=== PATIENT | female | born 1955 | race Hispanic/Latino ===

== ENCOUNTER → 2023-03-01 | Emergency (ER) | payer MEDICARE, OTHER ==
[~2023-03-01] VITALS: Ht 157.5 cm; Wt 107.0 kg
[~2023-03-01] MED LIST: IBUP-2070 PO; METH-662 PO
[2023-03-01 13:20] VITALS: BP 147/105; PULSE 55; RESP 18
== END ==
LOC: EDH 12:42
DX: M54.40 Lumbago with sciatica, unspecified side (principal); I10 Essential (primary) hypertension; E78.00 Pure hypercholesterolemia, unspecified; Z79.899 Other long term (current) drug therapy; Z98.890 Other specified postprocedural states; Z85.3 Personal history of malignant neoplasm of breast; Z96.653 Presence of artificial knee joint, bilateral; Z88.0 Allergy status to penicillin; Z88.8 Allergy status to other drugs, medicaments and biological substances

== ENCOUNTER → 2023-03-14 | Outpatient (CLI) | payer OTHER ==
[~2023-03-14] MED LIST changes: +FAMO-136 PO; +METH4TAB3 PO
== END | disposition home or self-care (01) ==
LOC: RAH 10:56
PROVIDERS: ATTEND Internal Medicine
DX: M54.16 Radiculopathy, lumbar region (principal); G89.29 Other chronic pain; G82.20 Paraplegia, unspecified; W19.XXXA Unspecified fall, initial encounter; Y93.89 Activity, other specified; Y92.89 Other specified places as the place of occurrence of the external cause; Y99.8 Other external cause status
CPT/HCPCS: 72220; 73522

== ENCOUNTER 2023-03-27 11:10 | Emergency (ER) | payer OTHER ==
[~2023-03-27] VITALS: Ht 162.6 cm; Wt 104.3 kg
[~2023-03-27 11:10] MED LIST changes: -FAMO-136 PO; -METH4TAB3 PO
[2023-03-27] MEDS ORDERED: SOLU-MEDROL 125MG VIAL IM ONE (13:30)
[2023-03-27 14:48] VITALS: BP 124/93; PULSE 84; RESP 17; O2SAT 94
[2023-03-27 14:49] LABS: BASOPHILS # (AUTO) 0.04 K/uL (0.00-0.20); BASOPHILS % (AUTO) 0.3 % (0.0-5.0); EOSINOPHILS # (AUTO) 0.16 K/uL (0.00-0.70); EOSINOPHILS % (AUTO) 1.4 % (0.0-8.0); HEMATOCRIT 42.1 % (36-48); IMMATURE GRANULOCYTE ABSOLUTE 0.09 K/uL (0-1); LYMPHOCYTES # (AUTO) 2.1 K/uL (1.0-4.8); LYMPHOCYTES % (AUTO) 18.2 % (21.0-51.0); MEAN CORPUSCULAR HEMOGLOBIN 30.2 pg (27.0-33.0); MEAN CORPUSCULAR HGB CONC 32.3 g/dL (32.0-36.0); MEAN CORPUSCULAR VOLUME 93.3 fL (79-99); MONOCYTES # (AUTO) 0.7 K/uL (0.1-1.0); MONOCYTES % (AUTO) 5.9 % (3.0-13.0); NEUTROPHILS # (AUTO) 8.5 K/uL (1.8-7.7); NEUTROPHILS % (AUTO) 73.4 % (40.0-77.0); PLATELET COUNT (AUTO) 534 K/uL (130-400); RED BLOOD CELL COUNT(AUTO) 4.51 MIL/uL (4.00-5.50); WHITE BLOOD COUNT (AUTO) 11.6 K/uL (4.8-10.8)
[2023-03-27 15:00] LABS: CREATININE 1.5 mg/dL (0.5-1.5); POTASSIUM 4.3 mmol/L (3.5-5.1)
[2023-03-27 15:11] LABS: ALBUMIN 2.9 g/dL (3.5-5.0); BILIRUBIN,TOTAL 0.4 mg/dL (0.2-1.0)
[2023-03-27] MEDS ORDERED: METH4TAB3 PO (15:24)
[2023-03-27] MEDS ORDERED: FAMO-136 PO (15:24)
== END 2023-03-27 16:00 | disposition home or self-care (01) ==
LOC: EDH 11:10
DX: M79.18 Myalgia, other site (principal); M54.41 Lumbago with sciatica, right side; M47.816 Spondylosis without myelopathy or radiculopathy, lumbar region; Z85.3 Personal history of malignant neoplasm of breast; Z88.0 Allergy status to penicillin
CPT/HCPCS: 99285; 74176; 96374; 84484; 80053; 85025; 36415; J2930

== ENCOUNTER 2023-12-01 13:42 | Observation (INO) | payer OTHER ==
[~2023-12-01] VITALS: Ht 157.5 cm; Wt 94.9 kg
[~2023-12-01 13:42] MED LIST changes: +FAMO-136 PO; +METH4TAB3 PO
[2023-12-01 14:03] LABS: BASOPHILS # (AUTO) 0.02 K/uL (0.00-0.20); BASOPHILS % (AUTO) 0.2 % (0.0-5.0); EOSINOPHILS # (AUTO) 0.01 K/uL (0.00-0.70); EOSINOPHILS % (AUTO) 0.1 % (0.0-8.0); HEMATOCRIT 35.4 % (36-48); IMMATURE GRANULOCYTE ABSOLUTE 0.04 K/uL (0-1); LYMPHOCYTES # (AUTO) 3.1 K/uL (1.0-4.8); LYMPHOCYTES % (AUTO) 28.3 % (21.0-51.0); MEAN CORPUSCULAR HEMOGLOBIN 29.6 pg (27.0-33.0); MEAN CORPUSCULAR HGB CONC 33.3 g/dL (32.0-36.0); MEAN CORPUSCULAR VOLUME 88.9 fL (79-99); MONOCYTES # (AUTO) 0.9 K/uL (0.1-1.0); PLATELET COUNT (AUTO) 278 K/uL (130-400); RED BLOOD CELL COUNT(AUTO) 3.98 MIL/uL (4.00-5.50); RED CELL DISTRIBUTION WIDTH 17.6 % (11.0-15.5); WHITE BLOOD COUNT (AUTO) 11.1 K/uL (4.8-10.8)
[2023-12-01 14:12] LABS: INR <= 0.93 (0.85-1.15); PROTHROMBIN TIME 10.1 SEC (9.6-11.6)
[2023-12-01 14:14] LABS: PARTIAL THROMBOPLASTIN TIME 25.3 SEC (26.3-35.5)
[2023-12-01 14:21] LABS: CREATININE 1.3 mg/dL (0.5-1.0); POTASSIUM 4.5 mmol/L (3.5-5.1)
[2023-12-01] MEDS: ACETAMINOPHEN WITH CODEINE 1 TAB TAB PO ONE (15:37)
[2023-12-01] MEDS ORDERED: ONDANSETRON 4MG INJ IVP PRN (17:30)
[2023-12-01] MEDS: NITROGLYCERIN 1GM OINT 1 INCH/1GM TD SCH (17:36)
[2023-12-01] MEDS ORDERED: APIX5TAB PO (17:48)
[2023-12-01] MEDS ORDERED: DULO60CA64 PO (17:48)
[2023-12-01] MEDS ORDERED: ROSU10TA72 PO (17:48)
[2023-12-01] MEDS ORDERED: LOSA25TA41 PO (17:48)
[2023-12-01] MEDS ORDERED: AMLO-258 PO (17:48)
[2023-12-01] MEDS ORDERED: METO-408 PO (17:48)
[2023-12-01] MEDS ORDERED: GABA600T10 PO (17:48)
[2023-12-01] MEDS ORDERED: TIZA-211 PO (17:51)
[2023-12-01 18:52] VITALS: O2SAT 96
[2023-12-01] MEDS ORDERED: DULO20CA18 PO (18:54)
[2023-12-01 20:00] VITALS: BP 149/81; PULSE 97; RESP 19
[2023-12-01] MEDS: ACETAMINOPHEN 325 MG TAB PO PRN (21:33)
[2023-12-01] MEDS ORDERED: POTASSIUM CHLORIDE 20MEQ/100ML 100 ML IV PRN (22:00)
[2023-12-01] MEDS ORDERED: POTASSIUM CHLORIDE 10% ELIXIR 20 MEQ/15 ML UDCUP PO PRN (22:00)
[2023-12-01] MEDS ORDERED: KCL 20 MEQ ERTAB PO PRN (22:00)
[2023-12-02] VITALS (7 sets, daily range): BP systolic 109–150; BP diastolic 65–110; PULSE 52–85; RESP 17–19; O2SAT 97–99
[2023-12-02] MEDS: TIZANIDINE HCL 2 MG TABLET PO PRN (00:35)
[2023-12-02] MEDS: REGADENOSON 0.4 MG/5 ML PF SYG IVP SCH (08:53)
[2023-12-02] MEDS ORDERED: GABAPENTIN 300 MG CAPSULE PO SCH (09:00)
[2023-12-02] MEDS: Duloxetine HCl 20 MG PO SCH (09:00)
[2023-12-02] MEDS ORDERED: LOSARTAN 25 MG TABLET PO SCH (09:00)
[2023-12-02] MEDS: ATORVASTATIN 40 MG TABLET PO SCH (10:04)
[2023-12-02] MEDS: GABAPENTIN 300 MG CAPSULE PO SCH (10:04)
[2023-12-02] MEDS: LOSARTAN 25 MG TABLET PO SCH (10:04)
[2023-12-02] MEDS: METOPROLOL SUCCINATE 25 MG TAB.SR.24H PO SCH (10:04)
[2023-12-02] MEDS: DULOXETINE HCL 30 MG CAP PO SCH (10:04)
[2023-12-02] MEDS: AMLODIPINE 5 MG TAB PO SCH (10:04)
[2023-12-02] MEDS ORDERED: ALBUTEROL 0.083% 2.5 MG/3 ML INH IH PRN (10:30)
[2023-12-02] MEDS ORDERED: PHARMACY COMMUNICATION MISC SCH (10:30)
[2023-12-02] MEDS: IPRATROPIUM/ALBUTEROL SULFATE 3 ML SOLUTION IH SCH (11:23)
[2023-12-02] MEDS: KETOROLAC 15MG/ML VIAL (15MG/ML) IV ONE (11:32)
[2023-12-02] MEDS ORDERED: GABA600T10 PO (12:34)
[2023-12-02] MEDS ORDERED: TIZA-211 PO (12:37)
[2023-12-02] MEDS ORDERED: TIZANIDINE HCL 2 MG TABLET PO SCH (21:00)
== END 2023-12-02 14:30 | disposition home or self-care (01) ==
LOC: EDH 13:42 → EDHIP 16:43 → OBSVTOIN 16:43 → INTOOBSV 16:43 → 4AH 18:10
PROVIDERS: ADMIT Internal Medicine; ATTEND Internal Medicine
DX: R07.89 Other chest pain (principal); M54.16 Radiculopathy, lumbar region; E66.01 Morbid (severe) obesity due to excess calories; G47.33 Obstructive sleep apnea (adult) (pediatric); I12.9 Hypertensive chronic kidney disease with stage 1 through stage 4 chronic kidney disease, or unspecified chronic kidney disease; E11.22 Type 2 diabetes mellitus with diabetic chronic kidney disease; N18.9 Chronic kidney disease, unspecified; E78.5 Hyperlipidemia, unspecified; E88.810 Metabolic syndrome; M48.00 Spinal stenosis, site unspecified; I67.9 Cerebrovascular disease, unspecified; F41.1 Generalized anxiety disorder; I48.0 Paroxysmal atrial fibrillation; E89.0 Postprocedural hypothyroidism; D68.69 Other thrombophilia; Z96.653 Presence of artificial knee joint, bilateral; Z88.0 Allergy status to penicillin; Z85.3 Personal history of malignant neoplasm of breast; Z98.84 Bariatric surgery status; Z91.011 Allergy to milk products; Z68.38 Body mass index [BMI] 38.0-38.9, adult; Z79.899 Other long term (current) drug therapy; Z85.6 Personal history of leukemia; Z90.49 Acquired absence of other specified parts of digestive tract
CPT/HCPCS: 99285; 82550; 84484 ×5; 80048; 85025; 85610; 85730; 82948; 36415; 71045; 70450; 93005; 96374; 93017; 78452; 94640; G0378 ×4; J1885; J2785; A9500 ×2; 94664

== ENCOUNTER 2023-12-08 20:51 | Observation (INO) | payer OTHER ==
[~2023-12-08] VITALS: Ht 162.6 cm; Wt 49.4 kg
[~2023-12-08 20:51] MED LIST changes: +AMLO-258 PO; +APIX5TAB PO; +DULO20CA18 PO; +DULO60CA64 PO; -FAMO-136 PO; +GABA600T10 PO; -IBUP-2070 PO; +LOSA25TA41 PO; -METH-662 PO; -METH4TAB3 PO; +METO-408 PO; +ROSU10TA72 PO; +TIZA-211 PO
[2023-12-08 21:23] LABS: BASOPHILS # (AUTO) 0.05 K/uL (0.00-0.20); BASOPHILS % (AUTO) 0.6 % (0.0-5.0); EOSINOPHILS # (AUTO) 0.22 K/uL (0.00-0.70); EOSINOPHILS % (AUTO) 2.5 % (0.0-8.0); HEMATOCRIT 38.8 % (36-48); IMMATURE GRANULOCYTE ABSOLUTE 0.04 K/uL (0-1); LYMPHOCYTES # (AUTO) 2.2 K/uL (1.0-4.8); LYMPHOCYTES % (AUTO) 24.6 % (21.0-51.0); MEAN CORPUSCULAR HEMOGLOBIN 29.2 pg (27.0-33.0); MEAN CORPUSCULAR HGB CONC 32.5 g/dL (32.0-36.0); MEAN CORPUSCULAR VOLUME 89.8 fL (79-99); MONOCYTES # (AUTO) 0.8 K/uL (0.1-1.0); MONOCYTES % (AUTO) 9.4 % (3.0-13.0); NEUTROPHILS # (AUTO) 5.5 K/uL (1.8-7.7); NEUTROPHILS % (AUTO) 62.4 % (40.0-77.0); PLATELET COUNT (AUTO) 319 K/uL (130-400); RED BLOOD CELL COUNT(AUTO) 4.32 MIL/uL (4.00-5.50); RED CELL DISTRIBUTION WIDTH 16.9 % (11.0-15.5); WHITE BLOOD COUNT (AUTO) 8.8 K/uL (4.8-10.8)
[2023-12-08 21:32] LABS: CREATININE 1.6 mg/dL (0.5-1.0); POTASSIUM 4.3 mmol/L (3.5-5.1)
[2023-12-08 21:36] LABS: ALBUMIN 3.5 g/dL (3.5-5.0); BILIRUBIN,TOTAL 0.2 mg/dL (0.2-1.0); TOTAL PROTEIN, SERUM 7.1 g/dL (6.0-8.3)
[2023-12-08 21:44] LABS: APPEARANCE,URINE CLOUDY (CLEAR); BILIRUBIN,URINE NEGATIVE (NEGATIVE); COLOR,URINE YELLOW (YELLOW); GLUCOSE, URINE (UA) NEGATIVE (NEGATIVE); KETONES,URINE NEGATIVE (NEGATIVE); LEUKOCYTE ESTERASE ,URINE 500 Leu/uL (NEGATIVE); NITRATE,URINE NEGATIVE (NEGATIVE); OCCULT BLOOD,URINE NEGATIVE (NEGATIVE); PH,URINE 5.5 (5.0-8.0); PROTEIN,URINE 100 mg/dL (NEGATIVE)
[2023-12-08 21:45] LABS: ADD UA MICROSCOPIC YES
[2023-12-08 21:47] LABS: INR 0.96 (0.85-1.15); PROTHROMBIN TIME 10.4 SEC (9.6-11.6)
[2023-12-08 21:48] LABS: PARTIAL THROMBOPLASTIN TIME 25.8 SEC (26.3-35.5)
[2023-12-08 21:49] LABS: BACTERIA,URINE FEW /HPF (None Seen); MUCUS,URINE RARE LPF (None Seen); SQUAMOUS EPITHELIAL CELL,UR FEW /HPF (0-2); WBC,URINE 26-50 /HPF (0-1)
[2023-12-08] MEDS: CEFTRIAXONE 1G VIAL ONE (23:00)
[2023-12-08] MEDS ORDERED: ACET-2079 PO (23:34)
[2023-12-09] MEDS ORDERED: ONDANSETRON 4MG INJ IVP PRN
[2023-12-09] MEDS: CEFTRIAXONE 1G VIAL IVPB ONE (00:04)
[2023-12-09 00:56] VITALS: BP 99/52; PULSE 50; RESP 18
[2023-12-09 01:00] VITALS: O2SAT 100
[2023-12-09] MEDS ORDERED: GABA600T10 PO ×2 (01:08→13:46)
[2023-12-09] MEDS: 0.9%NACL 1000ML 1,000 ML IV SCH (01:10)
[2023-12-09] MEDS ORDERED: PHARMACY COMMUNICATION MISC SCH (02:30)
[2023-12-09 03:41] VITALS: BP 139/90; PULSE 47; RESP 18
[2023-12-09] MEDS ORDERED: TIZANIDINE HCL 2 MG TABLET PO PRN (06:30)
[2023-12-09] MEDS: ACETAMINOPHEN 325 MG TAB PO PRN (06:34)
[2023-12-09 08:00] VITALS: BP 99/65; PULSE 49; RESP 18
[2023-12-09] MEDS: METOPROLOL SUCCINATE 25 MG TAB.SR.24H PO SCH (08:07)
[2023-12-09] MEDS: AMLODIPINE 5 MG TAB PO SCH (08:13)
[2023-12-09] MEDS: GABAPENTIN 300 MG CAPSULE PO SCH (08:13)
[2023-12-09] MEDS: APIXABAN 5 MG TABLET PO SCH (08:13)
[2023-12-09] MEDS: (Duloxetine HCl 20 MG) PO SCH (08:14)
[2023-12-09 08:30] VITALS: O2SAT 98
[2023-12-09] MEDS ORDERED: NON-FORMULARY MEDICATION 1 EACH (Duloxetine HCl 60 MG) PO SCH (09:00)
[2023-12-09 11:39] VITALS: BP 110/73; PULSE 50; RESP 18
[2023-12-09] MEDS ORDERED: FLUT1BLS3 IH (13:12)
[2023-12-09] MEDS ORDERED: ALBU90AE3 IH (13:12)
[2023-12-09] MEDS ORDERED: ACETAMINOPHEN WITH CODEINE 1 TAB TAB PO PRN (13:30)
[2023-12-09] MEDS ORDERED: CEPH500T PO (13:35)
[2023-12-09] MEDS ORDERED: ACET-2079 PO (13:47)
[2023-12-09] MEDS ORDERED: GABAPENTIN 300 MG CAPSULE PO SCH (21:00)
[2023-12-09] MEDS ORDERED: ATORVASTATIN 20 MG TABLET PO SCH (21:00)
[2023-12-09] MEDS ORDERED: NON-FORMULARY MEDICATION 1 EACH (Gabapentin 600 MG) PO SCH (21:00)
== END 2023-12-09 14:45 | disposition home or self-care (01) ==
LOC: EDH 20:51 → EDHIP 23:37 → 4BH 12-09 00:14
PROVIDERS: ADMIT Internal Medicine; ATTEND Internal Medicine
DX: I95.9 Hypotension, unspecified (principal); N39.0 Urinary tract infection, site not specified; M54.16 Radiculopathy, lumbar region; G47.33 Obstructive sleep apnea (adult) (pediatric); I12.9 Hypertensive chronic kidney disease with stage 1 through stage 4 chronic kidney disease, or unspecified chronic kidney disease; E11.22 Type 2 diabetes mellitus with diabetic chronic kidney disease; N18.9 Chronic kidney disease, unspecified; E78.5 Hyperlipidemia, unspecified; E88.810 Metabolic syndrome; R07.89 Other chest pain; D68.69 Other thrombophilia; E66.01 Morbid (severe) obesity due to excess calories; I48.91 Unspecified atrial fibrillation; F32.A Depression, unspecified; M48.061 Spinal stenosis, lumbar region without neurogenic claudication; C95.91 Leukemia, unspecified, in remission; I67.9 Cerebrovascular disease, unspecified; Z68.41 Body mass index [BMI] 40.0-44.9, adult; Z88.8 Allergy status to other drugs, medicaments and biological substances; Z79.01 Long term (current) use of anticoagulants; Z79.899 Other long term (current) drug therapy; Z90.49 Acquired absence of other specified parts of digestive tract; Z88.0 Allergy status to penicillin; Z91.011 Allergy to milk products; Z96.653 Presence of artificial knee joint, bilateral
CPT/HCPCS: 99284; 84484; 80053; 85025; 85610; 85730; 87086 ×2; 87186; 81001; 36415; 70450; 72125; 72131; 72192; 93005; 96360; 96361; 93306; 97161; 97116; 97530 ×2; G0378 ×13; J0696

== ENCOUNTER → 2024-03-11 | Outpatient (CLI) | payer OTHER ==
[~2024-03-11] MED LIST changes: +ACET-2079 PO; +ALBU90AE3 IH; -AMLO-258 PO; +CEPH500T PO; +FLUT1BLS3 IH; +GABA-1405 PO; -GABA600T10 PO
== END | disposition home or self-care (01) ==
LOC: RAH 09:45
PROVIDERS: ATTEND Internal Medicine
DX: R68.84 Jaw pain (principal)
CPT/HCPCS: 70120; 70328

== ENCOUNTER → 2024-05-01 | Outpatient (CLI) | payer OTHER | END | disposition home or self-care (01) | LOC: RAH 08:09 | PROVIDERS: ATTEND Internal Medicine | DX: Z12.31 Encounter for screening mammogram for malignant neoplasm of breast (principal) | CPT/HCPCS: 77067 ==

== ENCOUNTER → 2024-05-19 | Outpatient (CLI) | payer OTHER ==
[~2024-05-19] MED LIST changes: +AMLO-257 PO; +HYDR25TA PO; +LEVO5TAB13 PO; +LOSA50TA64 PO; +METO-391 PO; +SUMA100T16 PO; +TIZA6CAP9 PO
[2024-05-19 12:17] LABS: HEMOGLOBIN A1C 5.9 % (4.0-6.0)
[2024-05-19 12:21] LABS: ALBUMIN 3.3 g/dL (3.5-5.0); BILIRUBIN,TOTAL 0.2 mg/dL (0.2-1.0); CREATININE 1.1 mg/dL (0.5-1.0); POTASSIUM 4.9 mmol/L (3.5-5.1); TOTAL PROTEIN, SERUM 6.7 g/dL (6.0-8.3)
== END | disposition home or self-care (01) ==
LOC: LAB 10:39
PROVIDERS: ATTEND Student in an Organized Health Care Education/Training Program
DX: I11.9 Hypertensive heart disease without heart failure (principal); E78.2 Mixed hyperlipidemia; E66.9 Obesity, unspecified; R73.03 Prediabetes
CPT/HCPCS: 36415; 80053; 80061; 83036

== ENCOUNTER → 2025-02-11 | Outpatient (CLI) | payer OTHER ==
[~2025-02-11] MED LIST changes: -ACET-2079 PO; -ALBU90AE3 IH; -CEPH500T PO; -HYDR25TA PO; -LOSA25TA41 PO; -METO-408 PO; -TIZA6CAP9 PO
--- NOTE | 2025-02-12 06:45 | HMCIMG ---
EXAMINATION: SOFT TISSUE ULTRASOUND OF THE NECK. CLINICAL HISTORY: Enlarged lymph nodes. COMPARISON: None. TECHNIQUE: Transverse and longitudinal images were obtained in the left side of the neck. FINDINGS: There are lymph nodes that measure 0.8 x 0.5 x 0.5 cm, 1.0 x 0.5 x 0.4 cm, 1.5 x 0.4 x 0.8 cm in the left side of the neck in craniocaudal, AP, and transverse dimensions respectively. Hilar echoes are maintained. No increased vascularity. IMPRESSION: Mild cervical lymphadenopathy. If indicated, further evaluation with CT can be performed. /Calvin
== END | disposition home or self-care (01) ==
LOC: RAH 10:54
PROVIDERS: ATTEND Internal Medicine
DX: R59.0 Localized enlarged lymph nodes (principal)
CPT/HCPCS: 76536